=== PATIENT | female | born 1985 | race Caucasian/White ===

== ENCOUNTER 2016-09-13 18:31 | Emergency (ER) | payer OTHER ==
[~2016-09-13] VITALS: Ht 157.5 cm; Wt 102.0 kg
--- NOTE | 2016-09-13 18:55 | NUR ---
ASSUMED CARE OF PATIENT.
[2016-09-13] MEDS ORDERED: HYDROcodone/APAP 7.5 MG/325 MG (NORCO) TABLET PO ONE (19:55)
[2016-09-13] MEDS ORDERED: ED- HYDROcodone/ACETAMINOPHEN 5MG/325MG (NORCO) 6 TABLETS/BTL PO ONE (21:00)
[2016-09-13 21:09] VITALS: BP 127/84
== END 2016-09-13 21:09 | disposition home or self-care (01) ==
LOC: ED 18:32
DX: S52.572A Other intraarticular fracture of lower end of left radius, initial encounter for closed fracture (principal); W19.XXXA Unspecified fall, initial encounter; Y92.009 Unspecified place in unspecified non-institutional (private) residence as the place of occurrence of the external cause; F17.210 Nicotine dependence, cigarettes, uncomplicated
CPT/HCPCS: 73030; 73090; 99283; L3908